=== PATIENT | male | born 1980 | race African-American/Black ===

== ENCOUNTER 2019-05-08 16:33 | Emergency (ER) | payer OTHER ==
[2019-05-08 17:57] LABS: Absolute Lymphocytes (CBC) 2.9 K/uL (0.7-4.9); Basophils % 1.4 % (0-1.3); Hematocrit 40.4 % (39.6-49.0); MPV 9.4 fL (7.6-11.3); RBC Red Blood Cell Count 4.53 M/uL (4.33-5.43)
[2019-05-08 18:13] LABS: Albumin 3.9 g/dL (3.4-5.0); Bilirubin Total 0.3 mg/dL (0.2-1.0); Potassium 3.9 mmol/L (3.5-5.1); Protein, Total 7.9 g/dL (6.4-8.2)
--- NOTE | 2019-05-08 18:57 | RAD REPORT ---
EXAM DESCRIPTION: CT - Head C Spine Mpr Wo Con - 05/08/2019 6:44 pm CLINICAL HISTORY: Head and neck injury status post trauma. Head and neck pain COMPARISON: None. TECHNIQUE: Computed axial tomography of the head and cervical spine was obtained. Sagittal and coronal reconstruction was performed. All CT scans are performed using dose optimization technique as appropriate and may include automated exposure control or mA/KV adjustment according to patient size. FINDINGS: An intracranial bleed is not seen. The ventricles are normal in caliber. An extra-axial fl uid collection is not noted.Fluid within the visualized sinuses and mastoids is not seen A cervical fracture is not visualized. No dislocation is noted. IMPRESSION: No acute intracranial abnormality is seen. A cervical fracture is not visualized. If the patient continues to have symptoms to suggest intracra nial /spinal cord pathology then MRI would be recommended
--- NOTE | 2019-05-08 19:04 | RAD REPORT ---
EXAM DESCRIPTION: CT - Chest For Pe Angio - 05/08/2019 6:45 pm CLINICAL HISTORY: Chest pain COMPARISON: None. TECHNIQUE: Dynamically enhanced axial 3 mm thick images of the chest were obtained during administra tion of <100> mL Isovue 370 IV contrast. Coronal and oblique reconstruction images were generated and reviewed. Exam utilizes a protocol for optimal evaluation of pulmonary arterial tree. Maximum intensity projections 3D imaging was utilized All CT scans are performed using dose optimization technique as appropriate and may include automated exposure control or mA/KV adjustment according to patient size. FINDINGS: A pulmonary embolus is not seen. A thoracic aortic aneurysm is not noted. A mediastinal hematoma is not seen. A pleural effusion is not seen. A pericardial effusion is not seen. A lung contusion is not present IMPRESSION: Negative for a pulmonary embolism. No acute traumatic injury seen
--- NOTE | 2019-05-08 19:24 | ER ---
Nurse's Notes [facility] Name: Jim Diez Age: 38 yrs Sex: Male : 1980 Arrival Date: 05/08/2019 Time: 16:41 Bed 15 Private MD: Diagnosis: Chest Wall Contusion;Unspecified injury of head Presentation: 05/08 16:42 Presenting complaint: Patient states: [place] and had a work injury, sv saw a MD over there but had a language barrier and they were not understanding where he was hurting, Pt reports he was carrying an 80 pound battery and was going over a boulder and his foot got stuck and fell down with the weight on his chest and left side rib cage, c/o neck, upper back, left shoulder, left rib pain. Pt reports he flew back yesterday after a 23 hr flight and started having dizziness. Transition of care: patient was not received from another setting of care. Onset of symptoms was May 03, 2019. Risk Assessment: Do you want to hurt yourself or someone else? Patient reports no desire to harm self or others. Initial Sepsis Screen:. Care prior to arrival: None. 16:42 Method Of Arrival: Ambulatory sv 16:42 Acuity: NATASHA 3 sv 19:05 Initial Sepsis Screen: Does the patient meet any 2 criteria? No. Patient's initial wh sepsis screen is negative. Does the patient have a suspected source of infection? No. Patient's initial sepsis screen is negative. Triage Assessment: 19:05 General: Behavior is calm, cooperative, appropriate for age. Respiratory: Reports pain wh with movement the patient has mild shortness of breath. Historical: - Allergies: 16:48 No Known Allergies; sv - PMHx: 16:48 None; sv - PSHx: 16:48 None; sv - Immunization history:: Adult Immunizations up to date. - Social history:: Smoking status: Patient/guardian denies using tobacco. - Ebola Screening: : Patient negative for fever greater than or equal to 101.5 degrees Fahrenheit, and additional compatible Ebola Virus Disease symptoms Patient reports travel to an Ebola-affected area in the 21 days before illness onset. Patient reports to have traveled to [place]. Screenin:04 Abuse screen: Denies threats or abuse. Denies injuries from another. Nutritional ch screening: No deficits noted. Tuberculosis screening: No symptoms or risk factors identified. Fall Risk None identified. Assessment: 17:04 General: Appears in no apparent distress. uncomfortable, pt appears in pain. Pain: Complains of pain in left trapezius, left scapular area, left subscapular area, thoracic area, anterior aspect of left upper chest, left lateral anterior chest, left lateral posterior chest and left breast Pain currently is 9 out of 10 on a pain scale. Quality of pain is described as sharp, stabbing, Pain began suddenly. Neuro: No deficits noted. Cardiovascular: Heart tones S1 S2 present Capillary refill < 3 seconds in bilateral fingers Clubbing of nail beds is absent Patient's skin is warm and dry. Pulses are all present. Edema is absent. Rhythm is regular. Respiratory: Airway is patent Respiratory effort is even, unlabored, shallow, Breath sounds are clear bilaterally. pt is breathing very shallowly pt is very tender to L lower ribs and L lower and mid back. GI: No signs and/or symptoms were reported involving the gastrointestinal system. Derm: Skin is intact, Skin is normal, black, Skin temperature is warm Bruising that is dark purple, on back. Musculoskeletal: Circulation, motion, and sensation intact. pt c/o pain with movement of head to L side, and with movement of L shoulder. 18:17 Reassessment: Patient appears in no apparent distress at this time. No changes from previously documented assessment. Patient and/or family updated on plan of care and expected duration. Pain level reassessed. Patient is alert, oriented x 3, equal unlabored respirations, skin warm/dry/pink. 19:11 Reassessment: Patient appears in no apparent distress at this time. No changes from previously documented assessment. Patient and/or family updated on plan of care and expected duration. Pain level reassessed. Patient is alert, oriented x 3, equal unlabored respirations, skin warm/dry/pink. Vital Signs: 16:48 BP 124 / 78; Pulse 75; Resp 14; Temp 98.1; Pulse Ox 99% ; Weight 102.51 kg; Height 6 sv ft. 3 in. (190.50 cm); 18:17 BP 114 / 68; Pulse 67; Resp 16; Temp 99.1; Pulse Ox 99% on R/A; Pain 7/10; ch 19:11 BP 132 / 65; Pulse 68; Resp 14; Pulse Ox 97% on R/A; Pain 7/10; ch 16:48 Body Mass Index 28.25 (102.51 kg, 190.50 cm) ED Course: 16:41 Patient arrived in ED. mr 16:47 Triage completed. sv 16:48 Arm band placed on. sv 16:52 Asim Roque PA is PHCP. [facility] 16:52 Shar Martinez MD is Attending Physician. [facility] 16:53 Little Jackson, RN is Primary Nurse. ch 17:04 No apparent distress. Resting quietly. ch 17:04 Patient has correct armband on for positive identification. Bed in low position. Call light in reach. Side rails up X 1. Pulse ox on. NIBP on. Door closed. Noise minimized. Warm blanket given. 17:04 No provider procedures requiring assistance completed. 17:09 EKG done, by healthcare technician. reviewed by Asim DUVALL. 3 17:51 Initial lab(s) drawn, by il, sent to lab. Inserted saline lock: 20 gauge in right ms antecubital area, using aseptic technique. Blood collected. 18:45 CT Head C Spine In Process Unspecified. EDMS 18:45 CT Chest For PE Angio In Process Unspecified. EDCA 19:11 Report given to David QUINTERO. 19:53 IV discontinued, intact, bleeding controlled, No redness/swelling at site. Administered Medications: No medications were administered Outcome: 19:24 Discharge ordered by . [facility] 19:52 Discharged to home ambulatory. 19:52 Condition: stable 19:52 Discharge instructions given to patient, Instructed on discharge instructions, follow up and referral plans. medication usage, POC Blunt Chest Trauma Demonstrated understanding of instructions, follow-up care, medications, POC 19:53 Patient left the ED. Signatures: Dispatcher [employer] EDMS Little Jackson RN RN ch Verde, Stephanie, RN RN Asim Roque PA PA [facility] Millie Silva mr Langford, Neha Pisano, Sophie Felicia Castillo 3 Corrections: (The following items were deleted from the chart) 16:49 16:48 102.51 kg; Height 6 ft. 3 in.; BMI: 28.2; sv sv 16:50 16:48 Pulse 75bpm; Resp 14bpm; Pulse Ox 99%; Temp 98.1F; 102.51 kg; Height 6 ft. 3 in.; sv BMI: 28.2; sv
--- NOTE | 2019-05-08 19:25 | EDPHYS ---
Physician Documentation [facility] Name: Jim Diez Age: 38 yrs Sex: Male : 1980 Arrival Date: 05/08/2019 Time: 16:41 Bed 15 Private MD: ED Physician Shar Martinez HPI: 05/08 17:22 This 38 yrs old Black Male presents to ER via Ambulatory with complaints of Dizziness, jmm Breathing Difficulty. 17:32 Details of fall: The patient fell from an upright position, while walking. Onset: The jmm symptoms/episode began/occurred acutely, 5 day(s) ago. Associated injuries: The patient sustained injury to the head, injury to the chest. This is a 38 year old male with no chronic medical conditions that presents to the ED with complaints of headache and left sided chest pain after a fall which occurred this past Saturday. Patient states he was carrying an 80 pound battery and tripped on a rock and fell backwards hitting his head against another rock with the battery landing on the left side of his chest. Patient was evaluated in [facility] with negative plain films. Patient complains of ongoing pain to the left side of his chest along with headaches which are worsened with changes in position. . Historical: - Allergies: 16:48 No Known Allergies; sv - PMHx: 16:48 None; sv - PSHx: 16:48 None; sv - Immunization history:: Adult Immunizations up to date. - Social history:: Smoking status: Patient/guardian denies using tobacco. - Ebola Screening: : Patient negative for fever greater than or equal to 101.5 degrees Fahrenheit, and additional compatible Ebola Virus Disease symptoms Patient reports travel to an Ebola-affected area in the 21 days before illness onset. Patient reports to have traveled to [place]. ROS: 17:32 Constitutional: Negative for fever, chills, and weight loss. jmm 17:32 Cardiovascular: Positive for chest pain, with movement. 17:32 Respiratory: Positive for shortness of breath. 17:32 Neuro: Positive for headache. 17:32 All other systems are negative. Exam: 17:32 Constitutional: This is a well developed, well nourished patient who is awake, alert, jmm and in no acute distress. Head/Face: atraumatic. Eyes: EOMI, no conjunctival erythema appreciated ENT: Moist Mucus Membranes 17:32 Back: Normal ROM Skin: General appearance color normal MS/ Extremity: Moves all extremities, no obvious deformities appreciated, no edema noted to the lower extremities Neuro: Awake and alert, normal gait Psych: Behavior is normal, Mood is normal, Patient is cooperative and pleasant 17:32 Neck: C-spine: appears grossly normal. 17:32 Chest/axilla: Palpation: tenderness, that is moderate, of the left lateral anterior chest. 17:32 Cardiovascular: Rate: normal, Rhythm: regular, Pulses: no pulse deficits are appreciated. 17:32 Respiratory: the patient does not display signs of respiratory distress, Respirations: normal, Breath sounds: are clear throughout. 17:32 Abdomen/GI: Inspection: abdomen appears normal, Bowel sounds: normal, Palpation: abdomen is soft and non-tender, in all quadrants. 17:32 Back: pain. Vital Signs: 16:48 BP 124 / 78; Pulse 75; Resp 14; Temp 98.1; Pulse Ox 99% ; Weight 102.51 kg; Height 6 sv ft. 3 in. (190.50 cm); 18:17 BP 114 / 68; Pulse 67; Resp 16; Temp 99.1; Pulse Ox 99% on R/A; Pain 7/10; ch 19:11 BP 132 / 65; Pulse 68; Resp 14; Pulse Ox 97% on R/A; Pain 7/10; ch 16:48 Body Mass Index 28.25 (102.51 kg, 190.50 cm) sv MDM: 17:12 Patient medically screened. radha 19:12 Data reviewed: vital signs, nurses notes. Counseling: I had a detailed discussion with fanny the patient and/or guardian regarding: the historical points, exam findings, and any diagnostic results supporting the discharge/admit diagnosis, radiology results, the need for outpatient follow up, to return to the emergency department if symptoms worsen or persist or if there are any questions or concerns that arise at home. ED course: Imaging studies are negative. Patient advised to follow up with pcp and otherwise given strict return precautions. Patient understood and agrees with the plan of care. . 05/08 17:22 Order name: CBC with Diff; Complete Time: 18:04 [facility] 05/08 17:22 Order name: CMP; Complete Time: 18:15 [facility] 05/08 17:22 Order name: Saline Lock; Complete Time: 17:49 [facility] 05/08 17:22 Order name: CT Head C Spine; Complete Time: 19:04 [facility] 05/08 17:22 Order name: CT Chest For PE Angio; Complete Time: 19:09 [facility] 05/08 17:41 Order name: EKG Electrocardiogram; Complete Time: 17:41 EDMS Administered Medications: No medications were administered Disposition: 05/08/19 19:24 Discharged to Home. Impression: Chest Wall Contusion, Unspecified injury of head. - Condition is Stable. - Discharge Instructions: Head Injury, Adult, Blunt Chest Trauma. - Prescriptions for orphenadrine citrate 100 mg Oral Tablet Sustained Release - take 1 tablet by ORAL route 2 times per day As needed; 20 tablet. - Medication Reconciliation Form, Thank You Letter, Antibiotic Education, Prescription Opioid Use form. - Follow up: Private Physician; When: 2 - 3 days; Reason: Recheck today's complaints, Continuance of care, Re-evaluation by your physician. Addendum: 05/11/2019 08:26 Co-signature as Attending Physician, Shar Martinez MD I agree with the assessment and k dr plan of care. Signatures: Dispatcher [employer] EDMS Little Jackson RN RN ch Verde, Stephanie, RN RN Shar Martinez MD MD [facility] Asim Roque PA PA [facility] Sophie Pisano Corrections: (The following items were deleted from the chart) 05/08 19:53 19:24 05/08/2019 19:24 Discharged to Home. Impression: Chest Wall Contusion; wh Unspecified injury of head. Condition is Stable. Forms are Medication Reconciliation Form, Thank You Letter, Antibiotic Education, Prescription Opioid Use. Follow up: Private Physician; When: 2 - 3 days; Reason: Recheck today's complaints, Continuance of care, Re-evaluation by your physician. [facility]
[2019-05-08 19:59] VITALS: TEMP 99.1
[2019-05-08 20:01] VITALS: BP 132/65; O2SAT 97
--- NOTE | 2019-05-09 12:30 | EKG ---
Test Date: 2019-05-08 Test Time: 17:06:12 Marine Farmer: AJ MEASUREMENT RESULTS: Intervals: Rate: 66 FL: 186 QRSD: 86 QT: 400 QTc: 419 [place]: P: 60 FL: 186 QRS: 92 T: 38 INTERPRETIVE STATEMENTS: Normal sinus rhythm Rightward axis Nonspecific T wave abnormality Abnormal ECG No previous ECG available for comparison Electronically Signed On 05-09-19 12:29:12 CDT by Nikunj Sorensen
== END 2019-05-08 19:53 | disposition home or self-care (01) ==
LOC: ER 16:33
DX: S20.219A Contusion of unspecified front wall of thorax, initial encounter (principal); S09.90XA Unspecified injury of head, initial encounter; W01.198A Fall on same level from slipping, tripping and stumbling with subsequent striking against other object, initial encounter; Y93.01 Activity, walking, marching and hiking; Y92.9 Unspecified place or not applicable
CPT/HCPCS: 93005; 85025; 36415; 80053; 70450; 72125; 71275; 99284; Q9967